=== PATIENT | female | born 1995 | race Caucasian/White ===

== ENCOUNTER 2016-07-13 13:51 | Emergency (ER) | payer BC, MEDICAID, OTHER ==
[2016-07-13 14:03] VITALS: BP 100/53; PULSE 70; RESP 18; TEMP 98.6; O2SAT 96
--- NOTE | 2016-07-13 15:14 | UCPHY ---
H & P Patient Type: Established Chief Complaint Nursing Narrative: c/o ST/fevers since last night Time Seen by Provider: 07/13/16 15:06 HPI/ROS: CHIEF COMPLAINT: Sore throat HISTORY OF PRESENT ILLNESS: The patient is a 20-year-old female who comes to the Urgent Care complaining of a sore throat. She states that her symptoms began last night. She has had a tactile fever and some chills. No cough, no sinus congestion. Positive lymphadenopathy. She states that she has had strep throat several times and that this feels very similar. No headache. REVIEW OF SYSTEMS: Constitutional: denies: chills, fever, recent illness, recent injury EENTM: See HPI Respiratory: denies: cough, shortness of breath Cardiac: denies: chest pain, irregular heart rate, lightheadedness, palpitations Gastrointestinal/Abdominal: denies: abdominal pain, diarrhea, nausea, vomiting, blood streaked stools Genitourinary: denies: dysuria, frequency, hematuria, pain Musculoskeletal: denies: joint pain, muscle pain Skin: denies: lesions, rash, jaundice, bruising Neurological: denies: headache, numbness, paresthesia, tingling, dizziness, weakness Hematologic/Lymphatic: denies: blood clots, easy bleeding, easy bruising Immunologic/allergic: denies: HIV/AIDS, transplant EXAM: GENERAL: Well-appearing, well-nourished and in no acute distress. HEAD: Atraumatic, normocephalic. EYES: Pupils equal round and reactive to light, extraocular movements intact, sclera anicteric, conjunctiva are normal. ENT: erythematous and purulent tonsils bilaterally, no visible abscess. TMs normal, nares patent. Moist mucous membranes. NECK: Normal range of motion, supple without lymphadenopathy or JVD. LUNGS: Breath sounds clear to auscultation bilaterally and equal. No wheezes rales or rhonchi. HEART: Regular rate and rhythm without murmurs, rubs or gallops. ABDOMEN: Soft, nontender, normoactive bowel sounds. No guarding, no rebound. No masses appreciated. BACK: No CVA tenderness, no spinal tenderness, step-offs or deformities EXTREMITIES: Normal range of motion, no pitting or edema. No clubbing or cyanosis. NEUROLOGICAL: Cranial nerves II through XII grossly intact. Normal speech, normal gait. 5/5 strength, normal movement in all extremities, normal sensation PSYCH: Normal mood, normal affect. SKIN: Warm, dry, normal turgor, no visible rashes or lesions. Source: Patient Exam Limitations: No limitations - Personal History LMP (Females 10-55): 1-7 Days Ago Current Tetanus Diphtheria and Acellular Pertussis (TDAP): Unsure Tetanus Vaccine Date: 2011 - Medical/Surgical History Hx Asthma: No Hx Chronic Respiratory Disease: No Hx Diabetes: No Hx Cardiac Disease: No Hx Renal Disease: No Hx Cirrhosis: No Hx Alcoholism: No Hx HIV/AIDS: No Hx Splenectomy or Spleen Trauma: No Other PMH: denies - Family History Significant Family History: No pertinent family hx - Social History Smoking Status: Never smoked Alcohol Use: Sober Drug Use: None Constitutional: Initial Vital Signs Temperature (C) 37 C 07/13/16 14:01 Heart Rate 70 07/13/16 14:01 Respiratory Rate 18 07/13/16 14:01 Blood Pressure 100/53 L 07/13/16 14:01 O2 Sat (%) 96 07/13/16 14:01 O2 Delivery Mode Room Air Allergies/Adverse Reactions: ibuprofen Allergy (Severe, Verified 02/18/16 15:19) Swelling/neck,face,throat Home Medications: Medication Instructions Recorded Dexamethasone [Decadron 4 MG (RX)] 8 mg PO ONCE #2 tab 02/18/16 Hydrocodone/APAP 5/325 [Coleman 1 - 2 tab PO Q4-6PRN PRN #14 tab 02/18/16 5/325 (*)] Azithromycin [Zithromax] 250 mg PO DAILY #6 tab 07/13/16 Medical Decision Making ED Course/Re-evaluation: 3:12 p.m. the patient has symptoms classic for strep throat. Her rapid strep is negative but this has not been reliable this year. I will start her on antibiotics. She does not have any splenomegaly or exposure to mono recently. She declines blood work. She is happy with this plan and declines further workup or testing. She is asking for a work note tomorrow. She works at a preschool. Differential Diagnosis: Partial list of the Differential diagnosis considered include but were not limited to; strep throat, mononucleosis, viral pharyngitis and although unlikely based on the history and physical exam, I also considered sinusitis, abscess, meningitis, sepsis, pneumonia. I discussed these differential diagnoses and the plan with the patient as well as the usual and expected course. The patient understands that the diagnosis is provisional and that in medicine we are not always correct and that further workup is often warranted. Usual and customary warnings were given. All of the patient's questions were answered. The patient was instructed to return to the emergency department should the symptoms at all worsen or return, otherwise to followup with the physician as we discussed. - Data Points Laboratory Results: 07/13/16 07/13/16 Unknown 14:10 Group A Strep Screen NEGATIVE (NEGATIVE) Group A Strep DNA Pending Departure - Departure Disposition: Home, Routine, Self-Care Clinical Impression: Strep throat Condition: Fair Instructions: Pharyngitis (ED) Referrals: Abigail Rachel MD [[facility] Primary Care Provider] - As per Instructions Stand Alone Forms: Work Excuse Prescriptions: Azithromycin [Zithromax] 250 mg PO DAILY #6 tab - PQRS PQRS Measurement: Not applicable
== END 2016-07-13 15:23 | disposition home or self-care (01) ==
LOC: CED 13:51
DX: J02.0 Streptococcal pharyngitis (principal)
CPT/HCPCS: 87880-PO; 99214-PO; G0463-PO

== ENCOUNTER 2016-09-08 11:25 | Emergency (ER) | payer OTHER ==
[2016-09-08 11:43] VITALS: RESP 16; TEMP 97.5
--- NOTE | 2016-09-08 11:53 | CPEKG ---
Heart Rate: 50 RR Interval: 1200 P-R Interval: 116 QRSD Interval: 86 QT Interval: 432 QTC Interval: 394 P [place]oughton: 24 QRS Broughton: 83 T Wave [place]: 51 EKG Severity - NORMAL ECG - EKG Impression: SINUS RHYTHM Electronically Signed By: Brandt Ocasio 08-Sep-2016 15:06:48
[2016-09-08] MEDS ORDERED: NS 1,000 ML IV ONE (12:13)
--- NOTE | 2016-09-08 12:29 | EDPHY ---
H & P Stated Complaint: Pt. states brief syncopal episode yesterday 1400,lightheaded, nausea,[place] Time Seen by Provider: 09/08/16 11:38 HPI/ROS: Yesterday while standing with her boyfriend the kitchen cutting vegetables this patient abruptly developed lightheadedness and then describes briefly blacking out. She explains that she collapsed but was caught by her boyfriend. Within a few minutes she recovered. She reports that she regained consciousness very quickly but thereafter had a headache that was diffuse in location and moderate intensity. She slept without difficulty and awakened without headache today. However she still feels slightly fuzzy when she standing and has some nausea today. Other than that she has felt well recently. She admits that the lightheadedness is slightly worse when she standing up compared lying down and notes no other exacerbating factors. ROS: Constitutional: No fevers chills or other complaints HEENT: No complaints. Neuro: Again headache resolved. No numbness tingling or focal weakness. Psychiatric: She reports some anxiety since the episode. Pulmonary: She reports mild shortness of breath that she admits may be anxiety. No cough. No pleuritic pain. Cardiovascular: No heart palpitations. No chest pain. No lower extremity swelling or calf pain. GI: Again nausea since yesterday afternoon and nausea with breakfast this morning. She reports that otherwise she has had a normal appetite. She denies any eating disorder when asked directly. Endocrine: The patient reports a 15 lb weight loss over the past year and reports this was not intentional. She denies any change in diet. No polyuria or polydipsia. Integumentary: No skin rash. : No dysuria or other urinary symptoms. Last menstrual period was 1 week ago- normal timing. Complete review of symptoms is otherwise negative. Source: Patient Exam Limitations: No limitations - Personal History LMP (Females 10-55): 1-7 Days Ago Tetanus Vaccine Date: 2011 - Medical/Surgical History Hx Asthma: No Hx Chronic Respiratory Disease: No Hx Diabetes: No Hx Cardiac Disease: No Hx Renal Disease: No Hx Cirrhosis: No Hx Alcoholism: No Hx HIV/AIDS: No Hx Splenectomy or Spleen Trauma: No Other PMH: denies - Family History Significant Family History: No pertinent family hx - Social History Smoking Status: Current every day smoker (Smokes 2-4 cigarettes a day.) Alcohol Use: Rarely Drug Use: Marijuana (Occasional marijuana.) - Physical Exam Exam: Vital signs are notable for positive orthostatic changes with pulse that increased 30 points when she stood up compared lying down and she felt somewhat lightheaded while standing. General Appearance: Very thin 21-year-old female bordering on cachectic. Alert , no distress. Eyes: Pupils equal and round no pallor or injection. ENT, Mouth: Mucous membranes moist. Respiratory: There are no retractions, lungs are clear to auscultation. Cardiovascular: Regular rate and rhythm. No murmur gallop rub. No leg swelling or tenderness. Gastrointestinal: Abdomen is soft and nontender, no masses, bowel sounds normal. Neurological: GCS 15. No focal sensory or motor deficits. Skin: Warm and dry, no rashes. Musculoskeletal: Neck is supple nontender. Extremities are symmetrical, full range of motion. Psychiatric: Mood and affect normal DIFFERENTIAL DIAGNOSIS: After history and physical exam differential diagnosis was considered for dehydration, eating disorder, metabolic disarray, thyroid or other endocrine abnormality, , Constitutional: Initial Vital Signs Temperature (C) 36.4 C 09/08/16 11:30 Heart Rate 63 09/08/16 11:30 Respiratory Rate 16 09/08/16 11:30 Blood Pressure 98/66 L 09/08/16 11:30 O2 Sat (%) 99 09/08/16 11:30 O2 Delivery Mode Room Air Allergies/Adverse Reactions: ibuprofen Allergy (Severe, Verified 09/08/16 11:39) Swelling/neck,face,throat Home Medications: Medication Instructions Recorded Cephalexin [Keflex (*)] 500 mg PO TID #15 cap 09/08/16 Ondansetron Odt [Zofran Odt] 4 - 8 mg PO Q4PRN PRN #4 tab 09/08/16 Medical Decision Making - Diagnostics EKG Interpretation: 12 lead EKG performed shortly after arrival at 11:52 a.m.-indication syncope rule out WPW, dysrhythmia or other abnormalities Sinus rhythm at 50 Intervals: Normal throughout [place]: Normal throughout Overall assessment: Normal EKG For complete read please refer to trace master ED Course/Re-evaluation: IV 1 L normal saline bolus. Thereafter her orthostatics symptoms resolved in her pulse remained unchanged from lying to standing. Review of her labs reveals normal CBC, comp metabolic panel, negative HCG. She does have borderline findings for cystitis with 5 leukocytes and 2+ bacteria without significant epithelial cells. Discussed this with her we decided to proceed with Keflex for 5 days pending urine culture. Discussion: Patient with syncope who is very thin in stature. She has had a 15 lb weight loss over the past year and wants her boyfriend dry to reports that she does not really meal she just snacks. I explained my concern of nutrition for her in some detail encouraging her have more protein in to eat meals with small protein snacks in between. Also provided a primary care physician to arrange follow-up appointment for any ongoing symptoms. After workup, no evidence of metabolic disarray, we ruled out , no other concerning findings. I think that she was dehydrated given her orthostatic changes on arrival I counseled her regarding this. - Data Points Laboratory Results: Laboratory Results 09/08/16 12:35 09/08/16 12:35 09/08/16 09/08/16 09/08/16 12:55 12:55 12:35 WBC RBC Hgb Hct MCV MCH MCHC RDW Plt Count MPV Neut % (Auto) Lymph % (Auto) [place] % (Auto) Eos % (Auto) Baso % (Auto) Nucleat RBC Rel Count Absolute Neuts (auto) Absolute Lymphs (auto) Absolute Monos (auto) Absolute Eos (auto) Absolute Basos (auto) Absolute Nucleated RBC Immature Gran % Immature Gran # Sodium 140 mEq/L mEq/L (134-144) Potassium 4.2 mEq/L mEq/L (3.5-5.2) Chloride 103 mEq/L mEq/L (97-110) Carbon Dioxide 23 mEq/l mEq/l (22-31) Anion Gap 14 mEq/L mEq/L (8-16) BUN 12 mg/dL mg/dL (7-23) Creatinine 0.7 mg/dL mg/dL (0.6-1.0) Estimated GFR > 60 Glucose 79 mg/dL mg/dL (70-100) Calcium 8.7 mg/dL mg/dL (8.5-10.4) Total Bilirubin 0.6 mg/dL mg/dL (0.1-1.4) AST 14 IU/L IU/L (14-46) ALT 21 IU/L IU/L (9-52) Alkaline Phosphatase 53 IU/L IU/L (38-126) Total Protein 6.5 g/dL g/dL (6.3-8.2) Albumin 3.8 g/dL g/dL (3.5-5.0) TSH 1.090 uIU/mL uIU/mL (0.465-4.680) Urine Color YELLOW Urine Appearance CLEAR Urine pH 5.0 (5.0-7.5) Ur Specific [place] 1.020 (1.002-1.030) Urine Protein NEGATIVE (NEGATIVE) Urine Ketones NEGATIVE (NEGATIVE) Urine Blood TRACE H (NEGATIVE) Urine Nitrate NEGATIVE (NEGATIVE) Urine Bilirubin NEGATIVE (NEGATIVE) Urine Urobilinogen 0.2 EU EU (0.2-1.0) Ur Leukocyte Esterase NEGATIVE (NEGATIVE) Urine RBC 1-3 /hpf /hpf (0-3) Urine WBC 3-5 /hpf H /hpf (0-3) Ur Epithelial Cells 1+ /lpf /lpf (NONE-1+) Urine Bacteria 2+ /hpf H /hpf (NONE SEEN) Urine Mucus TRACE /lpf /lpf (NONE-1+) Urine Glucose NEGATIVE (NEGATIVE) Urine Test NEGATIVE 09/08/16 12:35 WBC 4.89 10^3/uL 10^3/uL (3.80-9.50) RBC 4.27 10^6/uL 10^6/uL (4.18-5.33) Hgb 13.1 g/dL g/dL (12.6-16.3) Hct 38.7 % % (38.0-47.0) MCV 90.6 fL fL (81.5-99.8) MCH 30.7 pg pg (27.9-34.1) MCHC 33.9 g/dL g/dL (32.4-36.7) RDW 12.2 % % (11.5-15.2) Plt Count 229 10^3/uL 10^3/uL (150-400) MPV 10.1 fL fL (8.7-11.7) Neut % (Auto) 44.8 % % (39.3-74.2) Lymph % (Auto) 44.2 % % (15.0-45.0) [place] % (Auto) 9.4 % % (4.5-13.0) Eos % (Auto) 1.0 % % (0.6-7.6) Baso % (Auto) 0.6 % % (0.3-1.7) Nucleat RBC Rel Count 0.0 % % (0.0-0.2) Absolute Neuts (auto) 2.19 10^3/uL 10^3/uL (1.70-6.50) Absolute Lymphs (auto) 2.16 10^3/uL 10^3/uL (1.00-3.00) Absolute Monos (auto) 0.46 10^3/uL 10^3/uL (0.30-0.80) Absolute Eos (auto) 0.05 10^3/uL 10^3/uL (0.03-0.40) Absolute Basos (auto) 0.03 10^3/uL 10^3/uL (0.02-0.10) Absolute Nucleated RBC 0.00 10^3/uL 10^3/uL (0-0.01) Immature Gran % 0.0 % % (0.0-1.1) Immature Gran # 0.00 10^3/uL 10^3/uL (0.00-0.10) Sodium Potassium Chloride Carbon Dioxide Anion Gap BUN Creatinine Estimated GFR Glucose Calcium Total Bilirubin AST ALT Alkaline Phosphatase Total Protein Albumin TSH Urine Color Urine Appearance Urine pH Ur Specific [place] Urine Protein Urine Ketones Urine Blood Urine Nitrate Urine Bilirubin Urine Urobilinogen Ur Leukocyte Esterase Urine RBC Urine WBC Ur Epithelial Cells Urine Bacteria Urine Mucus Urine Glucose Urine Test Medications Given: Discontinued Medications Sodium Chloride (Ns) 1,000 mls @ 0 mls/hr IV ONCE ONE; Wide Open PRN Reason: Protocol Stop: 09/08/16 12:14 Last Admin: 09/08/16 12:41 Dose: 1,000 mls Departure - Departure Disposition: Home, Routine, Self-Care Clinical Impression: Cystitis, Dehydration Syncope Qualifiers: Syncope type: unspecified Qualified Code(s): R55 - Syncope and collapse Condition: Good Instructions: Urinary Tract Infection in Women (ED), Syncope (ED) Additional Instructions: Diagnoses: 1. Syncope 2. Bladder infection Plan: Drink plenty fluids Frequent protein-rich snacks. Keflex antibiotic for bladder infection Call Dr. Lara to establish primary care physician for any ongoing symptoms Return for any significant worsening despite the treatment plan Referrals: NONE *PRIMARY CARE P,. [Primary Care Provider] - As per Instructions Debra Lara DO [Doctor of Osteopathy] - As per Instructions Prescriptions: Cephalexin [Keflex (*)] 500 mg PO TID #15 cap Ondansetron Odt [Zofran Odt] 4 - 8 mg PO Q4PRN PRN #4 tab PRN Reason: Vomiting
[2016-09-08 12:38] LABS: ADD DIFF? NO; ADD MORPH? NO; ADD SCAN? NO; ATYPICAL LYMPHOCYTE FLAG 40 (0-99); FRAGMENT RBC FLAG 0 (0-99); HEMATOCRIT 38.7 % (38.0-47.0); HEMOGLOBIN 13.1 g/dL (12.6-16.3); LEFT SHIFT FLG 0 (0-99); LIPEMIA HEMOLYSIS FLAG 90 (0-99); MEAN CELL HEMOGLOBIN 30.7 pg (27.9-34.1); MEAN CELL HEMOGLOBIN CONCENTR. 33.9 g/dL (32.4-36.7); MEAN CELL VOLUME 90.6 fL (81.5-99.8); MEAN PLATELET VOLUME 10.1 fL (8.7-11.7); PLATELET CLUMPS FLAG 0 (0-99); PLATELET COUNT 229 10^3/uL (150-400); RED BLOOD CELL COUNT 4.27 10^6/uL (4.18-5.33); RED CELL DISTRIBUTION WIDTH 12.2 % (11.5-15.2)
[2016-09-08 13:00] LABS: ALANINE AMINOTRANSFERASE 21 IU/L (9-52); ALBUMIN 3.8 g/dL (3.5-5.0); ALKALINE PHOSPHATASE 53 IU/L (38-126); ANION GAP 14 mEq/L (8-16); ASPARTATE AMINOTRANSFERASE 14 IU/L (14-46); BILIRUBIN,TOTAL 0.6 mg/dL (0.1-1.4); CALCIUM 8.7 mg/dL (8.5-10.4); CARBON DIOXIDE 23 mEq/l (22-31); CHLORIDE 103 mEq/L (97-110); CREATININE 0.7 mg/dL (0.6-1.0); GLOMERULAR FILTRATION RATE > 60; GLUCOSE 79 mg/dL (70-100); POTASSIUM 4.2 mEq/L (3.5-5.2); SODIUM 140 mEq/L (134-144); TOTAL PROTEIN 6.5 g/dL (6.3-8.2)
[2016-09-08 13:07] LABS: COLOR YELLOW; LEUKOCYTE ESTERASE,URINE NEGATIVE (NEGATIVE); NITRITE,URINE NEGATIVE (NEGATIVE)
[2016-09-08 13:19] VITALS: PULSE 54
[2016-09-08 13:24] VITALS: O2SAT 100
[2016-09-08 13:29] LABS: BACTERIA 2+ /hpf (NONE SEEN); MUCUS TRACE /lpf (NONE-1+)
[2016-09-08 14:05] VITALS: BP 97/51
== END 2016-09-08 13:50 | disposition home or self-care (01) ==
LOC: CED 11:25
DX: R55 Syncope and collapse (principal); N30.90 Cystitis, unspecified without hematuria; B96.89 Other specified bacterial agents as the cause of diseases classified elsewhere; E86.0 Dehydration; F17.200 Nicotine dependence, unspecified, uncomplicated
CPT/HCPCS: 80053-PO; 81003-PO; 81015-PO; 81025-PO; 84443-PO; 85025-PO